=== PATIENT | female | born 1995 | race Caucasian/White ===

== ENCOUNTER 2018-09-19 14:24 | Outpatient (CLI) | payer BC ==
--- NOTE | 2018-09-19 16:10 | MRI ---
MRI RIGHT ANKLE WITHOUT CONTRAST: HISTORY: Right ankle instability. Rolled ankle a week ago. FINDINGS: The Achilles tendon is normal in appearance. The anterior extensor tendon group is normal. The posterior tibialis, the flexor digitorum longus, and the flexor hallucis longus tendons are all n ormal. The peroneus longus and brevis tendons are intact. The superior peroneal retinaculum is intact. The plantar fascia is normal in appearance. The sinus tarsi region is unremarkable. The spring liga ment complex and the Lisfranc ligament all appear intact. There is no osteochondral lesion of the talar dome. There is some minimal edema change associated wi th the tip of the medial malleolus, near the attachment of the deep fibers of the deltoid, which are also heterogeneous and show some increased signal change. This could indicate a tiny avulsive injury in this region, with a deltoid ligament sprain. In addition, there is evidence of a disruption of t he anterior talofibular ligament. A tiny bony density is seen near the fibular attachment, which may represent a tiny avulsive injury. There is a slightly larger bony density, which is seen near the t alar attachment, which is also suspicious for a small avulsion. There are edema changes of the proxi mal attachment of the calcaneal fibular ligament. Distally it is normal. The posterior talar fibula r ligament and the syndesmotic ligaments are intact. IMPRESSION: Findings consistent with an ankle sprain. There has been disruption of the anterior talofibular liga ment and what appears to be small avulsive-type injuries associated with this. Some minimal edema ch niyah of the proximal attachment of the calcaneal fibular ligament is seen, and edema changes of the d eep fibers of the deltoid ligament are also noted. POS: [facility]
== END 2018-09-19 14:25 | disposition home or self-care (01) ==
LOC: BICMRI 14:24
PROVIDERS: ATTEND Orthopaedic Surgery
DX: M25.371 Other instability, right ankle (principal)